=== PATIENT | male | born 1985 ===

== ENCOUNTER 2018-08-19 08:33 | Emergency (ER) | payer BC ==
[2018-08-19 08:41] VITALS: BMI 40.6
--- NOTE | 2018-08-19 08:46 | ED PDOC ---
Arrival/HPI - General Chief Complaint: ENT Problem Time Seen by Provider: 08/19/18 08:39 Historian: Patient - History of Present Illness Time/Duration: Other (Several days) Symptom Onset: Gradual Symptom Course: Worsening Severity Level: Moderate Associated Symptoms (Text): 08/19/18 08:43 Patient complains of a several day history of a cough congestion and URI symptoms. This morning he awoke with a severe left earache. No hearing problems. No fever or chills. No dyspnea or chest pain. Past Medical History - Psychiatric Hx Depression: No Hx Emotional Abuse: No Hx Physical Abuse: No Hx Substance Use: No - Suicidal Assessment Feels Threatened In Home Enviroment: No Family/Social History Family/Social History: Unknown Family HX Smoking Status: Heavy Smoker > 10 Cigarettes Daily Hx Alcohol Use: No Hx Substance Use: No Hx Substance Use Treatment: No Allergies/Home Meds Allergies/Adverse Reactions: Allergies No Known Allergies Allergy (Verified 04/25/12 13:36) Review of Systems - Physician Review All systems were reviewed & negative as marked: Yes - Review of Systems Constitutional: absent: Fatigue, Fevers ENT: Sinus Congestion. absent: Hearing Changes Respiratory: Cough. absent: SOB, Sputum, Wheezing Cardiovascular: absent: Chest Pain Gastrointestinal: absent: Abdominal Pain, Nausea, Vomiting Neurological: Normal Physical Exam Vital Signs Temp Pulse Resp BP Pulse Ox 08/19/18 08:39 97.9 F 107 H 18 142/100 H 99 Temperature: Afebrile Blood Pressure: Hypertensive Pulse: Tachycardic Respiratory Rate: Normal Appearance: Positive for: Well-Appearing, Non-Toxic, Uncomfortable Pain Distress: Mild Mental Status: Positive for: Alert and Oriented X 3 - Systems Exam Head: Present: Atraumatic, Normocephalic Pupils: Present: PERRL Extroacular Muscles: Present: EOMI Ears: Present: Erythema, Normal Canal, Other (Left tympanic membrane retracted and erythematous). No: NORMAL TM Mouth: Present: Moist Mucous Membranes Pharnyx: No: ERYTHEMA, EXUDATE, TONSILS ENLARGED Neck: Present: Normal Range of Motion Respiratory/Chest: Present: Clear to Auscultation, Good Air Exchange. No: Respiratory Distress, Accessory Muscle Use Cardiovascular: Present: Regular Rate and Rhythm, Normal S1, S2. No: Murmurs Skin: Present: Warm, Dry, Normal Color. No: Rashes Disposition/Present on Arrival - Present on Arrival Any Indicators Present on Arrival: No History of DVT/PE: No History of Uncontrolled Diabetes: No Urinary Catheter: No History of Decub. Ulcer: No History Surgical Site Infection Following: None - Disposition Have Diagnosis and Disposition been Completed?: Yes Diagnosis: Otitis media, Bronchitis, Upper respiratory infection Disposition: HOME/ ROUTINE Disposition Time: 08:46 Patient Plan: Discharge Condition: GOOD Discharge Instructions (ExitCare): Ear Infections (Otitis Media), Acute Bronchitis Additional Instructions: Symptomatic treatment. Tylenol or Advil as directed on bottle as needed. Follow- up with PMD for hypertension check. Follow up in ER as needed. Prescriptions: Amoxicillin/Clavulanate [Augmentin 875 MG-125 MG] 1 tab PO Q12 #20 tab Benzonatate [Tessalon Perles] 100 mg PO Q8 #30 sgl Forms: [facility] (Italian), WORK NOTE
[2018-08-19 08:58] VITALS: BP 136/86; PULSE 70; RESP 19; TEMP 98; O2SAT 100
== END 2018-08-19 09:00 | disposition home or self-care (01) ==
LOC: ED 08:33
DX: J40 Bronchitis, not specified as acute or chronic (principal); J06.9 Acute upper respiratory infection, unspecified; H66.90 Otitis media, unspecified, unspecified ear; F17.210 Nicotine dependence, cigarettes, uncomplicated